=== PATIENT | female | born 1995 | race Caucasian/White ===

== ENCOUNTER → 2020-09-25 15:13 | Outpatient (CLI) | payer BC, SELFPAY ==
[2020-09-25 16:24] LABS: Erythrocyte Sedimentation Rate 21 mm/hr (0-30)
[2020-09-25 16:50] LABS: Vitamin B12 280 pg/mL (211-911)
[2020-09-25 16:57] LABS: ALB/GLOB Ratio 0.8 RATIO (0.9-2.4); AST(SGOT) 25 U/L (15-37); Alanine Aminotransfer ALT/SGPT 32 U/L (13-56); Albumin, Serum 3.5 g/dL (3.2-5.0); Alkaline Phosphatase 61 U/L (45-117); Anion Gap 9 (5-15); BUN 9 mg/dL (7-18); BUN/Creat Ratio 10.6 RATIO (10-20); CRP 8.58 mg/L (0.0-3.0); Chloride 108 mmol/L (98-107); Creatinine, Serum 0.85 mg/dL (0.55-1.02); EST Glomerular Filtration Rate 88 mL/min (>60); Est Glom Filt Rate - Afr Amer 106 mL/min (>60); Globulin 4.2 g/dL (2.2-4.2); Glucose 113 mg/dL (74-106); Potassium 3.8 mmol/L (3.5-5.1); Protein, Total 7.7 g/dL (6.4-8.2); Sodium Level 141 mmol/L (136-145); Thyroid Stim Hormone (TSH) 1.39 uIU/mL (0.358-3.74)
[2020-09-28 16:08] LABS: Albumin 3.7 g/dL (2.9-4.4); Alpha-1-Globulins 0.2 g/dL (0.0-0.4); Alpha-2-Globulins 0.9 g/dL (0.4-1.0); Gamma Globulin 1.2 g/dL (0.4-1.8); Immunoglobulin A 128 mg/dL (87-352); Immunoglobulin G 1284 mg/dL (586-1602); Immunoglobulin M 143 mg/dL (26-217); PROEL- TOTAL PROTEIN 7.2 g/dL (6.0-8.5)
[2020-09-29 07:56] LABS: Arsenic 7245 8 ug/L (2-23); Lead, Blood < 1 ug/dL (0-4); Mercury, Blood 85324 < 1.0 ug/L (0.0-14.9)
== END ==
DX: R20.2 Paresthesia of skin (principal)
CPT/HCPCS: 36415; 80053; 82175; 82607; 82784; 83655; 83825; 84165; 84443; 85652; 86140; 86334

== ENCOUNTER 2020-11-18 19:53 | Emergency (ER) | payer BC, SELFPAY ==
[2020-11-18 19:53] VITALS: BP 118/81; PULSE 100; RESP 16; TEMP 36.5; O2SAT 98; BMI 26.6
[2020-11-18] MEDS: Ketorolac 15 MG/ML Vial IM (20:48)
[2020-11-18] MEDS: predniSONE 20 MG Tablet 60 MG PO (20:48)
[2020-11-18] MEDS: oxyCODONE 5 MG Tablet PO (20:48)
--- NOTE | 2020-11-18 20:56 | ED.VIS.BACK ---
HPI History of Present Illness Chief Complaint: Back Narrative Narrative: Patient presenting with 2 months of lower back pain. She states that she has been seen by her primary care physician as well as her neurologist. Patient currently was placed in physical therapy yesterday and noted that she has increasing pain today. She did not call her primary care physician or her neurologist. She is currently trying to get through physical therapy or get an MRI determine the pain because that she believes that bulging disc per her physicians. Patient denies any loss of bladder bowel control. She denies saddle paresthesia. She denies concern for . She denies any direct trauma. She states that she only had light stretching yesterday. [facility] Medical History Celiac disease Home Medications norgestimate-ethinyl estradiol [Sprintec (28)] 1 tab DAILY 11/18/20 [History Last Taken Unknown] orphenadrine citrate 100 mg PO BID PRN #10 tab 11/18/20 [Rx Last Taken Unknown] prednisone 50 mg PO DAILY 5 Days #25 tab 11/18/20 [Rx Last Taken Unknown] topiramate [Topamax] 25 mg PO DAILY 11/18/20 [History Last Taken Unknown] Allergy/AdvReac Type Severity Reaction Status Date / Time gluten Allergy Upset Verified 11/18/20 19:56 Stomach Social History Smoking Status: Never smoker [facility] ED Constitutional Constitutional ED: Denies chills, fever(s) or sweats Eyes Eyes: Denies blurry vision or change in vision ENT ENT ED: Denies ear pain or sore throat Cardiovascular Cardiovascular: Denies chest pain, palpitations or racing heartbeat Respiratory/Chest Respiratory/Chest: Denies cough, dyspnea or sputum Gastrointestinal Gastrointestinal: Denies abdominal pain, constipation, diarrhea, nausea or vomiting Genitourinary Genitourinary ED: Denies dysuria, hematuria or urinary frequency Musculoskeletal Musculoskeletal: Reports back pain; Denies arthralgias, myalgias or neck pain Integumentary Denies abscess, Abrasions or rash Neurologic Neurologic: Reports paresthesias RLE and LLE; Denies headache(s) or weakness Psychiatric Psychiatric: Denies anxiety, depression, suicidal ideation or suicidal thoughts Endocrine Endocrinology: Denies polydipsia or polyuria EXAM Physical Exam Const Vital Signs: 11/18/20 19:53 Temperature 97.7 F L Temperature Source Temporal Pulse Rate 100 Respiratory Rate 16 Blood Pressure 118/81 H Blood Pressure Mean 93 Pulse Ox 98 Oxygen Delivery Method Room Air Positive well nourished General Appearance ED: NAD HEENT Reports moist mucous membranes Negative for trauma Eyes PERRL and EOMs intact bilaterally Resp normal respiratory effort and clear to auscultation bilaterally Cardio regular rate and regular rhythm Back/Spine Lumbar Spine / Lower Back: lumbar ROM normal, pain with ROM and paraspinal muscle tenderness left Neuro oriented x3 and no sensory deficits noted Sensorium / Orientation: alert Psych mental status grossly normal Skin no rashes or lesions noted and no wounds MDM MDM MDM Narrative Medical decision making narrative: Patient states she is had recent x-ray which showed no acute findings. She is also had a nerve conduction study which was negative. Patient is in physical therapy and awaiting MRI if she fails physical therapy. She does not have any findings consistent with cauda equina syndrome or infectious etiology. Likely this was exacerbated during physical therapy. Patient was put on prednisone and given muscle relaxers for pain. In the ED tonight she was given oxycodone for pain. Patient counseled on icing and stretching. She will follow up with her neurologist as needed. Patient able discharge. Impression: #1 acute on chronic lumbar strain Discharge Plan Triage Chief Complaint: Back ED Provider: Jose Miguel Sneed Dx/Rx/DC Orders Instructions: ED Back Spasm, No Trauma Prescriptions: New orphenadrine citrate 100 mg tablet extended release 100 mg PO BID PRN (Reason: muscle spasm) Qty: 10 RF: 0 prednisone 10 mg tablet 50 mg PO DAILY 5 Days Qty: 25 RF: 0 No Action norgestimate-ethinyl estradiol [Sprintec (28)] 0.25-35 mg-mcg tablet 1 tab DAILY RF: 0 topiramate [Topamax] 25 mg tablet 25 mg PO DAILY RF: 0 Primary Care Provider: Care Physician,No Primary Referrals: PAULO PIERCE [Other] Disposition Disposition: Home, Self Care
[2020-11-18 21:35] VITALS: BP 111/80; PULSE 81; RESP 15; O2SAT 97
== END 2020-11-18 21:36 | disposition home or self-care (01) ==
LOC: ED 20:46
PROVIDERS: Emergency Provider Student in an Organized Health Care Education/Training Program
DX: S39.012A Strain of muscle, fascia and tendon of lower back, initial encounter (principal); X58.XXXA Exposure to other specified factors, initial encounter; Z79.899 Other long term (current) drug therapy
CPT/HCPCS: 96372; 99283

== ENCOUNTER 2020-11-28 13:00 | Outpatient (RCR) | payer BC, SELFPAY ==
--- NOTE | 2020-11-16 11:30 | HP.PTEVAL ---
Patient's Visit Information DEMARCO ALVAREZ is a 25 year old F referred to Physical Therapy by GARETH Martinez with a diagnosis of LBP. Date of Evaluation: 11/16/20 Physical Therapist: Carrie Enamorado PT, Cert MDT - Visit Plan Frequency: 2-3x /Week Duration: 4-6 Weeks Plan: POSTURE CORRECTION/STRENGTHENING, INSTRUCTION IN APPROPRIATE BODY MECHANICS AND ACTIVITY MODIFICATIONS. DLS STARTING WITH A NEUTRAL SPINE PROGRESSING ROM TOLERATED. SONNY LE ROM, STRETCHING AND STRENGTHENING. HEP INSTRUCTION. 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 Disability: NO. Present symptoms: SONNY LOW BACK PAIN. SONNY LE TINGLING. THE TINGLING COMES AND GOES AND SEEMS TO BE MORE OFTEN RIGHT LE THAN LEFT. Present since: BEGINNING OF SEPTEMBER. Pain Scale: WORST 7/10, LEAST 2/10. Currently: /10. Commenced as a result of: NO APPARENT REASON. Symptoms at onset: RIGHT LE TINGLING. THEN IT WENT TO BOTH LEGS. THEN LOW BACK STARTED HURTING. Worse: SITTING IN A CHAIR OR CAR. THE DAY AFTER WALKING A LOT OR BEING PHYSICALLY ACTIVE. SUPINE LYING. Better: CHANGE OF POSITION, ADVIL. Disturbed sleep: YES. Previous history/Previous treatment: UNREMARKABLE. Treatment this episode: WENT TO URGENT CARE AND REC'D A SHOT OF TORODOL AND THAT HELPED. PT CONSULT ORDERED. NO PRESCRIPTION MEDICATION. Coughing/sneezing/straining: NO. Gait: INCREASED LBP AND LE SX'S WITH WALKING BUT CAN WALK THROUGH IT. PAYS FOR IT THE NEXT DAY. Difficulty initiating urinatin: NO. Accidents: NO. Unexplained weight loss: NO. Imaging: RECENT LBP X-RAYS - NORMAL PER PATIENT REPORT. 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 NO MRI. PMH: CELIAC DZ - UNDER CONTROL. MIGRAINES TREATED BY NEUROLOGY. PLOF: UNLIMITED. OTHER: PATIENT REPORTS THAT SHE IS MAKING SMALL IMPROVEMENTS BY TAKING ADVIL AND MODIFYING HER ACTIVITIES TO DECREASE SX'S. - Objective Sitting/Standing Posture: POOR. FH. RS'S. SLOUCHED. Lordosis: NORMAL. Lateral shift: NO. Relevant shift: N/A. Active Correction of posture: BETTER. Other Observations: INDEP GAIT AND TRANSFERS. Motor deficit: SONNY LE'S 5/5 WITH MMT'ING AND PATIENT DENIES INCREASED SX'S WITH TESTING. Sensory deficit: SONNY LE LIGHT TOUCH SENSATION INTACT AND SYMMETRICAL. ROM deficit: SONNY LE'S WFL. Reflexes: 2/3 SONNY LE'S. Dural Signs: POSITIVE SONNY LE'S. Lumbar mvmt loss: flex - NIL. ext - MOD - ITS REALLY TIGHT AND DOESN'T FEEL GOOD. R SG - MOD - SHOOTING PAINS ACROSS LB. L SG - MOD - NOT BAD BUT DOES THE SAME THING - SHOOTS PAIN ACROSS LB. LUMBAR ROM TESTING DID NOT PROVOKE LE SX'S. Core strength: POOR. Palpation: TENDERNESS WITH LIGHT PALPTION OF L45S1 REGION AND PATIENT REPORTS FEELING A LITTLE BIT OF TINGLING IN HER LEGS WITH PALPATION OF THIS AREA. TREATMENT: NEUROMUSCULAR REEDUCATION - RETRAINING OF MVMT AND POSTURE FOR SITTING, LYING AND STANDING ACTIVITIES. - Balance/Special Test Scores Oswestry Low Back Score: 13 - Goals Goal 1:: DECREASE C/O LBP AND SONNY LE SX'S. Goal Time Frame: 4-6 Weeks Goal 2:: IMPROVE PERSONAL CARE, LIFTING, SITTING, STANDING, SOCIAL LIFE, SLEEP, TRAVEL, WORK AND HOMEMAKING FUNCTION. Goal Time Frame: 4-6 Weeks Goal 3:: INSTRUCT IN PROPHYLAXIS Goal Time Frame: 4-6 Weeks - Anticipated Interventions Patient/Client Instruction: Educate patient on: Condition, Plan of Care, Risk Factors For the Purpose of:: To improve self management Therapeutic Exercise to Include: Strength training, Body mechanics, Postural training, Flexibilty training, Neuromotor development, In an aquatic setting, Dynamic Lumbar Stabilization For the Purpose of:: To decrease pain, To improve muscle performance and motor function, To increase tolerance to activity/condition/position, To improve ability of physical actions for home/community/work/leisure Thank you for the opportunity to evaluate your patient. For Medicare and Medicare HMO plans, please review the plan of care and approve it. It will need to be FAXED BACK to us at [phone] for Medicare purposes. For Medicare only, by signing this I certify the plan of care. Please let me know if there are questions or concerns regarding this plan of care. Physician Signature: Date:
--- NOTE | 2020-11-20 11:34 | HP.PTREVAL ---
GARETH Martinez, It has been my pleasure to treat DEMARCO ALVAREZ over the last 3 visits for LBP. Please see the progress note below for an update on the physical therapy plan of care! Subjective: PATIENT REPORTS THAT PRIOR TO THERAPY ON FRIDAY SHE WAS THE SAME AT [facility]. STATES SHE WAS GETTING SOME RELIEF FROM HOME INSTRUCTIONS GIVEN AT [facility]. STATES THAT THERAPY WAS NOT A PAINFUL PROCESS ON FRIDAY BUT AFTERWARDS IT WENT DOWN [place]ILL QUICKLY. STATES THAT BY THE TIME SHE WENT TO BED SHE WAS IN EXCRTIATING PAIN. STATES THE PAIN IS WORSE AND MORE CONSTANT THAN WHAT IT WAS BEFORE. WENT TO THE ED FRIDAY. WAS GIVEN PAIN MEDICATION, MUSCLE RELAXER AND STEROID. NO MRI. INSTRUCTED TO FOLLOW UP WITH [facility] FRIDAY. WORKING TODAY. PATIENT REPORTS SHE DIDN'T DO ANYTHING DIFFERENT FRIDAY OTHER THAN THERAPY BUT AGAIN SHE DID NOT HAVE INCREASED PAIN DURING THE SESSION. PATIENT REPORTS THE PAIN IS GETTING WORSE. Objective/Function: UPON EXAM TODAY THERE ARE NO SIGNIFICANT CHANGES WITH OBJECTIVE TESTING OF LUMBAR ROM AND LE'S BUT PATIENT IS REPORTING SIGNIFICANT INCREASED PAIN IN BACK AND LLE. THIS PT RECOMMENDED PHYSICIAN RE-ASSESSMENT AND PATIENT IS AGREEABLE. Plan Plan: CONT PT WITH DECREASED INTENSITY IF OK'D BY PHYSICIAN AFTER FOLLOW UP. POSTURE CORRECTION/STRENGTHENING, INSTRUCTION IN APPROPRIATE BODY MECHANICS AND ACTIVITY MODIFICATIONS. DLS STARTING WITH A NEUTRAL SPINE PROGRESSING ROM TOLERATED. SONNY LE ROM, STRETCHING AND STRENGTHENING. HEP INSTRUCTION. Balance/Gait/Functional tests - Balance/Special Test Scores Oswestry Low Back Score: 13 Goals Goal 1:: DECREASE C/O LBP AND SONNY LE SX'S. Goal Time Frame: 4-6 Weeks Goal 2:: IMPROVE PERSONAL CARE, LIFTING, SITTING, STANDING, SOCIAL LIFE, SLEEP, TRAVEL, WORK AND HOMEMAKING FUNCTION. Goal Time Frame: 4-6 Weeks Goal 3:: INSTRUCT IN PROPHYLAXIS Goal Time Frame: 4-6 Weeks Anticipated Interventions Patient/Client Instruction: Educate patient on: Condition, Plan of Care, Risk Factors For the Purpose of:: To improve self management Therapeutic Exercise to Include: Strength training, Body mechanics, Postural training, Flexibilty training, Neuromotor development, In an aquatic setting, Dynamic Lumbar Stabilization For the Purpose of:: To decrease pain, To improve muscle performance and motor function, To increase tolerance to activity/condition/position, To improve ability of physical actions for home/community/work/leisure Please do not hesitate to contact me at [phone] by phone or if you have questions or concerns regarding this new plan of care! Sincerely, Carrie Enamorado PT, Cert MDT
--- NOTE | 2021-02-20 13:14 | HP.PT.NRP ---
DEMARCO ALVAREZ was seen in my office for initial evaluation on 11/16/20. The following Plan of Care was established for this patient: Initial Frequency: 2-3x /Week Initial Duration: 4-6 Weeks Patient/Client Instruction: Educate patient on: Condition, Plan of Care, Risk Factors For the Purpose of:: To improve self management Therapeutic Exercise to Include: Strength training, Body mechanics, Postural training, Flexibilty training, Neuromotor development, In an aquatic setting, Dynamic Lumbar Stabilization For the Purpose of:: To decrease pain, To improve muscle performance and motor function, To increase tolerance to activity/condition/position, To improve ability of physical actions for home/community/work/leisure This patient was last seen in our office 11/28/20. Pertinent comments regarding their Physical therapy will appear below: This patient has not returned to Physical Therapy and is appropriate to return to MD for further follow-up as needed. At this point I will be discontinuing this patient from physical therapy. I would be happy to see this patient again in the future if found appropriate by the physician. Thank you! Carrie Enamorado, PT, Cert MDT Balance/Gait/Functional tests - Balance/Special Test Scores Oswestry Low Back Score: 13
== END 2020-11-28 19:00 | disposition home or self-care (01) ==
LOC: PT 13:00
PROVIDERS: Referring Provider Registered Nurse; Visit Provider Registered Nurse
DX: M54.5 Low back pain (principal)
CPT/HCPCS: 97014; 97035; 97110; 97112; 97162; 97530; G0283